=== PATIENT | female | born 1975 | race Caucasian/White ===

== ENCOUNTER 2017-09-30 09:16 | Emergency (ER) | payer OTHER ==
--- NOTE | 2017-09-30 10:23 | ER Document Report ---
HPI - HPI Patient complains to provider of: neck pain Onset: Other - chronic Onset/Duration: Persistent Pain Level: 4 Context: 42 yo female with increased stress and chronic neck pain was told by her chiropractor that she needs MR of the c spine. Appt at [facility] wasn't until later in the month and couldn't waiot until then. Tearful with her story. No radiculopathy. Pain radiates up into head causning headache. Associated Symptoms: None Exacerbated by: Movement Relieved by: Denies Similar symptoms previously: Yes Recently seen / treated by doctor: Yes - ROS ROS below otherwise negative: Yes Systems Reviewed and Negative: Yes All other systems reviewed and negative Past Medical History - General Information source: Patient - Social History Smoking Status: Never Smoker Frequency of alcohol use: None Drug Abuse: None Lives with: Family Family History: Reviewed & Not Pertinent - Medical History Medical History: Negative Surgical Hx: Negative Vertical Provider Document - CONSTITUTIONAL Agree With Documented VS: Yes Exam Limitations: No Limitations General Appearance: No Apparent Distress, Thin - INFECTION CONTROL TRAVEL OUTSIDE OF THE [place]. IN LAST 30 DAYS: No - HEENT HEENT: Normocephalic - NECK Neck: Supple - tense bilateral trapezius with winged scapula and shoulder rolled forward, exaggerated flexion t spine and chin jutted forward - RESPIRATORY Respiratory: Breath Sounds Normal, No Respiratory Distress O2 Sat by Pulse Oximetry: 94 - CARDIOVASCULAR Cardiovascular: Regular Rate, Regular Rhythm - BACK Notes: see above - MUSCULOSKELETAL/EXTREMETIES Musculoskeletal/Extremeties: MAEW, FROM, Tender - see above - NEURO Level of Consciousness: Awake, Alert, Appropriate Motor/Sensory: No Motor Deficit, No Sensory Deficit - DERM Integumentary: Warm, Dry, No Rash Course - Vital Signs Vital signs: Temp Pulse Resp BP Pulse Ox 98.1 F 97 20 110/61 94 09/30/17 09:26 09/30/17 09:26 09/30/17 09:26 09/30/17 09:26 09/30/17 09:26 Discharge - Discharge Clinical Impression: Chronic neck pain Condition: Good Disposition: HOME, SELF-CARE Instructions: Acetaminophen, Arthralgia ([facility]), Family Physicians / Practices, Myalagia (Muscle Pain) ([facility]), Steroid Medication, Ultram ([facility]) Additional Instructions: warm compress spine range of motion and proper alignment as discussed MRI cervical spine outpt order see family practice doctor for follow up Prescriptions: Promethazine HCl [Phenergan 25 mg Tablet] 25 mg PO Q4HP PRN #20 tablet PRN Reason: Prednisone [Deltasone 10 mg Tablet] 10 mg PO ASDIR PRN #15 tablet PRN Reason: Tramadol HCl [Ultram 50 mg Tablet] 50 mg PO ASDIR PRN #10 tablet PRN Reason: Forms: Follow-Up Outpatient Testing
[2017-09-30] MEDS ORDERED: ONDANSETRON 4 MG TAB.RAPDIS PO ONE (11:33)
[2017-09-30] MEDS ORDERED: PREDNISONE 20 MG TABLET PO ONE (11:33)
[2017-09-30] MEDS ORDERED: ACETAMINOPHEN 325 MG TABLET PO ONE (11:36)
[2017-09-30 12:03] VITALS: BP 119/59
== END 2017-09-30 12:03 | disposition home or self-care (01) ==
LOC: ER 09:16
DX: G89.29 Other chronic pain (principal); M54.2 Cervicalgia; R51 Headache
CPT/HCPCS: 99283; S0119; J7512

== ENCOUNTER 2018-01-10 23:52 | Emergency (ER) | payer OTHER ==
--- NOTE | 2018-01-11 01:15 | ER Document Report ---
ED Psych Disorder / Suicide - General Mode of Arrival: Ambulatory Information source: Patient TRAVEL OUTSIDE OF THE U.S. IN LAST 30 DAYS: No <REBECCA OJEDA - Last Filed: 01/11/18 03:17> <MARY CUNNINGHAM - Last Filed: 01/11/18 04:09> - General Chief Complaint: Psych Problem Stated Complaint: IVC WITH PAPERS Time Seen by Provider: 01/11/18 00:57 Notes: Patient is a 42 year old female that presents to the emergency department today with complaints of suicidal ideation according to who took out IVC paperwork on the patient. Patient states she has been off of her psychiatric medicine for quite some time. states there have been several situational events which have upset the patient. Patient denies doing anything prior to arrival to harm herself. (REBECCA OJEDA) - Related Data Allergies/Adverse Reactions: Sulfa (Sulfonamide Antibiotics) Allergy (Verified 09/30/17 10:24) tetracycline Allergy (Verified 09/30/17 10:24) Past Medical History - General Information source: Patient - Social History Smoking Status: Unknown if Ever Smoked Cigarette use (# per day): No Frequency of alcohol use: None Drug Abuse: None Lives with: Family Family History: Reviewed & Not Pertinent Patient has suicidal ideation: No Patient has homicidal ideation: No Psychiatric Medical History: Reports: Hx Attention Deficit Hyperactivity Disorder, Hx Depression Past Surgical History: Reports: Hx Hysterectomy, Hx Orthopedic Surgery <REBECCA OJEDA - Last Filed: 01/11/18 03:17> Review of Systems - Review of Systems Constitutional: No symptoms reported EENT: No symptoms reported Cardiovascular: No symptoms reported Respiratory: No symptoms reported Gastrointestinal: No symptoms reported Genitourinary: No symptoms reported Female Genitourinary: No symptoms reported Musculoskeletal: No symptoms reported Skin: No symptoms reported Hematologic/Lymphatic: No symptoms reported Neurological/Psychological: See HPI, Other - suicidal ideation -: Yes All other systems reviewed and negative <REBECCA OJEDA - Last Filed: 01/11/18 03:17> Physical Exam - Vital signs Interpretation: Normal - General General appearance: Appears well, Alert - HEENT Head: Normocephalic, Atraumatic Eyes: Normal Pupils: PERRL - Respiratory Respiratory status: No respiratory distress Chest status: Nontender Breath sounds: Normal Chest palpation: Normal - Cardiovascular Rhythm: Regular Heart sounds: Normal auscultation Murmur: No - Abdominal Inspection: Normal Distension: No distension Bowel sounds: Normal Tenderness: Nontender Organomegaly: No organomegaly - Back Back: Normal, Nontender - Extremities General upper extremity: Normal inspection, Nontender, Normal color, Normal ROM , Normal temperature General lower extremity: Normal inspection, Nontender, Normal color, Normal ROM , Normal temperature, Normal weight bearing. No: Natali's sign - Neurological Neuro grossly intact: Yes Cognition: Normal Orientation: AAOx4 Palmetto Coma Scale Eye Opening: Spontaneous Palmetto Coma Scale Verbal: Oriented Palmetto Coma Scale Motor: Obeys Commands Palmetto Coma Scale Total: 15 Speech: Normal Motor strength normal: LUE, RUE, LLE, RLE Sensory: Normal - Psychological Associated symptoms: Flat affect, Tearful - Skin Skin Temperature: Warm Skin Moisture: Dry Skin Color: Normal <MARY CUNNINGHAM - Last Filed: 01/11/18 04:09> Course - Laboratory Result Diagrams: 01/11/18 01:55 01/11/18 01:55 <REBECCA OJEDA - Last Filed: 01/11/18 03:17> - Laboratory Result Diagrams: 01/11/18 01:55 01/11/18 01:55 <MARY CUNNINGHAM - Last Filed: 01/11/18 04:09> - Re-evaluation Re-evalutation: 01/11/18 Patient is a 42-year-old female who was apparently making suicidal comments and writing on the wall at home. Patient is tearful on exam and that she would just like to go home. States that she has not been taking her medications as she is supposed to. Patient is medically stable. She has had a hysterectomy in the past. She will be held for mental health evaluation in the morning (MARY CUNNINGHAM) - Laboratory Laboratory results interpreted by id: 01/11/18 01/11/18 01:55 01:55 MCV 98 H Sodium 146.9 H Total Bilirubin < 0.1 L Total Protein 6.2 L Salicylates < 1.0 L Acetaminophen < 10 L Discharge <REBECCA OJEDA - Last Filed: 01/11/18 03:17> <MARY CUNNINGHAM - Last Filed: 04/29/18 04:09> - Discharge Clinical Impression: Suicidal ideation Condition: Stable Disposition: PSYCH HOSP/UNIT Scribe Attestation: 01/11/18 04:09 I personally performed the services described in the documentation, reviewed and edited the documentation which was dictated to the scribe in my presence, and it accurately records my words and actions. (MARY CUNNINGHAM) Scribe Documentation - Scribe Written by Scribe:: Nagi Vieira, 01/11/2018 0331 acting as scribe for :: Kwadwo <REBECCA OJEDA - Last Filed: 01/11/18 03:17>
[2018-01-11 02:14] LABS: ACETAMINOPHEN < 10 ug/mL (10-30); ALANINE AMINOTRANSFERASE 25 U/L (9-52); ALBUMIN 3.9 g/dL (3.5-5.0); ALCOHOL < 10 mg/dL (NONE DETECTED); ALKALINE PHOSPHATASE 54 U/L (38-126); ANION GAP 12 (5-19); ASPARTATE AMINO TRANSFERASE 16 U/L (14-36); BILIRUBIN,TOTAL < 0.1 mg/dL (0.2-1.3); BLOOD UREA NITROGEN 14 mg/dL (7-20); CALCIUM 9.6 mg/dL (8.4-10.2); CARBON DIOXIDE 29 mmol/L (22-30); CHLORIDE 106 mmol/L (98-107); GLUCOSE 96 mg/dL (75-110); SALICYLATE < 1.0 mg/dL (2.0-20.0); SODIUM 146.9 mmol/L (137-145); TOTAL PROTEIN 6.2 g/dL (6.3-8.2)
[2018-01-11 02:16] LABS: ABSOLUTE BASOPHILS # (AUTO) 0.1 10^3/uL (0.0-0.2); ABSOLUTE EOSINOPHILS # (AUTO) 0.3 10^3/uL (0.0-0.6); ABSOLUTE LYMPHOCYTES (AUTO) 2.4 10^3/uL (0.5-4.7); ABSOLUTE MONOCYTES (AUTO) 0.8 10^3/uL (0.1-1.4); ABSOLUTE NEUT (AUTO) 5.8 10^3/uL (1.7-8.2); BASOPHILS % (AUTO) 0.7 % (0-2); EOSINOPHILS % (AUTO) 2.7 % (0-6); HEMATOCRIT 37.8 % (36.0-47.0); HEMOGLOBIN 12.6 g/dL (12.0-15.5); LYMPHOCYTES % (AUTO) 26.1 % (13-45); MEAN CORPUSCULAR HEMOGLOBIN 32.7 pg (27.0-33.4); MEAN CORPUSCULAR HGB CONC 33.3 g/dL (32.0-36.0); MEAN CORPUSCULAR VOLUME 98 fl (80-97); MONOCYTES % (AUTO) 8.5 % (3-13); PLATELET COUNT 347 10^3/uL (150-450); RED BLOOD COUNT 3.86 10^6/uL (3.72-5.28); RED CELL DISTRIBUTION WIDTH 13.2 % (11.5-14.0); TOTAL CELLS COUNTED % (AUTO) 100 %; WHITE BLOOD COUNT 9.3 10^3/uL (4.0-10.5)
--- NOTE | 2018-01-11 08:10 | EKG REPORT ---
SEVERITY:- ABNORMAL ECG - SINUS RHYTHM PROLONGED QT INTERVAL : Confirmed by: Jacob Armenta MD 11-Jan-2018 08:09:45
[2018-01-11 09:36] LABS: AMORPHOUS SEDIMENT,URINE TRACE /HPF; APPEARANCE,URINE CLOUDY; BILIRUBIN,URINE NEGATIVE (NEGATIVE); COLOR,URINE YELLOW; GLUCOSE, URINE NEGATIVE (NEGATIVE); KETONES,URINE NEGATIVE (NEGATIVE); LEUKOCYTE ESTERASE,URINE NEGATIVE (NEGATIVE); NITRITE,URINE NEGATIVE (NEGATIVE); PROTEIN,URINE NEGATIVE (NEGATIVE); URINE SPECIFIC GRAVITY 1.012; UROBILINOGEN,URINE NEGATIVE mg/dL (<2.0)
[2018-01-11 09:49] LABS: URINE AMPHETAMINES SCREEN NEGATIVE; URINE BARBITURATES SCREEN NEGATIVE; URINE BENZODIAZEPINES SCREEN UNCONFIRMED POSITIVE; URINE COCAINE SCREEN NEGATIVE; URINE MARIJUANA (THC) SCREEN NEGATIVE; URINE METHADONE SCREEN NEGATIVE; URINE PHENCYCLIDINE SCREEN NEGATIVE
--- NOTE | 2018-01-11 11:27 | ER Document Report ---
Doctor's Note Notes: 01/11/18 11:26 42-year-old female that presents yesterday secondary to some suicidal ideations with IVC paperwork taken out by the . Patient admits to being noncompliant with medications. Patient has no acute complaints at this time. Labs and vital signs as recorded. Awaiting psychiatry/psychology evaluation. 01/11/18 12:41 They believe that the patient was attempting to stockpile medications in an attempt to kill himself. We will provide psychiatry/psychology's medication recommendations and reevaluate the patient in the morning.
[2018-01-11] MEDS ORDERED: FLUOXETINE HCL 20 MG CAPSULE PO SCH (12:45)
[2018-01-11] MEDS ORDERED: BENZTROPINE MESYLATE 1 MG TABLET PO SCH (12:45)
[2018-01-11] MEDS: OLANZAPINE 5 MG TABLET PO SCH ×2 (13:08→18:25)
[2018-01-11] MEDS ORDERED: OLANZAPINE 5 MG TABLET PO ONE (13:30)
[2018-01-11] MEDS ORDERED: BENZTROPINE MESYLATE 1 MG TABLET PO ONE (13:30)
[2018-01-11] MEDS ORDERED: FLUOXETINE HCL 20 MG CAPSULE PO ONE (13:30)
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
[2018-01-11] MEDS ORDERED: NICOTINE 21 MG/24 HR PATCH.TD24 TD ONE (14:11)
--- NOTE | 2018-01-12 09:25 | ER Document Report ---
Doctor's Note Notes: 01/12/18 09:25 As the rounding physician for our psychiatric patients, I have reviewed the chart, vitals, lab work. Patient has been examined and noted to be resting comfortably. I am awaiting mental health in put. 01/12/18 10:03
[2018-01-12 09:28] VITALS: BP 123/81
--- NOTE | 2018-01-12 11:31 | PSYCHOLOGICAL NOTE ---
<SUSANNA LANE - Last Filed: 01/12/18 11:26> Psych Note - Psych Note Psych Note: Reason for consult: suicidal ideation Eval: 0855 Final Disposition 11:00 am Patient is a 42-year-old female. Patient reports she is feeling much better because she was able to get sleep. Patient reports that she does have bipolar disorder and states at this time she feels she is just above her "lows". Patient reports in the past she has thought she was not bipolar and did not need medications. Patient reports that she knows she has bipolar disorder now and it runs in her family to include her daughter, father, and a sibling who all struggling with bipolar disorder. Patient reports her daughter is currently in long-term. Patient reports she had a lot of stress going on with her ujkzsr-sv-nsa and problems with her . Patient reports her and her was talking yesterday and she spoke with him today. Patient reports she will take her medication and talk with her about how she feels about her vsdemv-ar-gqv. Patient reports she has been trying to get her mother in law of the house for the last 4 years and states that it has been making her depressed. Patient reports she has plans to see her mom and sister. Patient reports that she will follow up with her therapist Yaz Marte, the [facility] counselor Marty Acosta, and [facility] for medication management. Patient reports she did not want to kill herself she just wanted her hifcsz-lq-kru gone. Patient reports when she was writing on the james doing stencils stating it was decoration. Collateral Information: Patient's Michael Caal phone #[phone] Patient's reports he spoke with patient today and said she sounded a lot better. Patient's reports he will be able to assist patient in following up with [facility], marriage counseling with [facility], and patient's therapist Yaz Marte. Patient's reports he saw patient yesterday , and is aware medication changes were made. Diagnosis 296.7 (F31.9) per history bipolar disorder current or most recent episode unspecified Medication recommendations made by [facility] contracted psychiatric provider Dr. Live MD includes: 1. Continue Prozac 10 mg daily 2. Continue Zyprexa 5 mg twice a day 3. Continue Cogentin 1 mg daily Impression/Plan: Patient is psychiatrically cleared for discharge. Recommendation to rescind involuntary commitment due to patient not meeting criteria [place] GS 122C. Clinician observed patient's affect has improved, she is no longer tearful, is able to cooperate with assessment. Clinician observed patient was experiencing situational and environmental stresses to include discord with a family member ( mother in law) . Patient denied SI/HI, and states she was directing her anger at her mother in law as an ultimatum to her . Clinician observed patient is demonstrating future oriented thinking and has plans to meet with her family members. Mental health coordinated with patient's Michael Caal, who agreed to safety plan in the home and take patient to her appointments. Recommendation to follow up with outpatient provider at [facility] scheduled , [facility] marriage counselor scheduled, and Mental health therapist Yaz Marte scheduled. Attending physician in agreement with plan. Consulted with Dr. Perez regarding the management and care of patient. <MADELAINE LEON - Last Filed: 01/12/18 12:09> Psych Note - Psych Note Psych Note: After performing a Medical Screening Examination, I estimate there is LOW risk for any life threatening mental health issues. At this time the patient looks extremely well and has not attempted severe self harm. I have reevaluated this patient multiple times and no significant life threatening changes are noted. The patient and I have discussed the diagnosis and risks, and we agree with discharging home with close follow-up with the understanding that symptoms and presentations can change. We also discussed returning to the Emergency Department immediately if new or worsening symptoms occur. We have discussed the symptoms which are most concerning (hallucinations, thoughts or actions of self harm or harm to others) that necessitate immediate return.
[2018-01-12] MEDS ORDERED: FLUOXETINE HCL 20 MG CAPSULE PO ONE ×2 (11:45→12:00)
[2018-01-12] MEDS ORDERED: FLUOXETINE HCL 20 MG/5 ML UDCUP PO SCH (12:00)
[2018-01-12] MEDS ORDERED: BENZTROPINE MESYLATE 1 MG TABLET PO ONE (12:00)
[2018-01-12] MEDS ORDERED: OLANZAPINE 5 MG TABLET PO ONE (12:00)
[2018-01-12] MEDS ORDERED: OLANZAPINE 5 MG TABLET PO SCH (22:00)
[2018-01-13] MEDS ORDERED: BENZTROPINE MESYLATE 1 MG TABLET PO SCH (12:00)
== END 2018-01-12 12:20 | disposition home or self-care (01) ==
LOC: ER 23:52
DX: Z04.6 Encounter for general psychiatric examination, requested by authority (principal); F31.61 Bipolar disorder, current episode mixed, mild; R45.851 Suicidal ideations; Z63.0 Problems in relationship with spouse or partner; Z63.1 Problems in relationship with in-laws; Z91.14 Patient's other noncompliance with medication regimen; Z88.2 Allergy status to sulfonamides; Z88.1 Allergy status to other antibiotic agents; Z81.8 Family history of other mental and behavioral disorders
CPT/HCPCS: 36415; 80053; 80307; 81001; 85025; 93005; 93010; 99285

== ENCOUNTER 2018-02-24 12:44 | Emergency (ER) | payer OTHER ==
--- NOTE | 2018-02-24 13:07 | ER Document Report ---
ED Psych Disorder / Suicide - General Chief Complaint: Psych Problem Stated Complaint: PSYCH EVAL Time Seen by Provider: 02/24/18 12:51 Notes: The patient is a 43-year-old female, past medical history bipolar, presents in police custody after she is having increasing suicidal thoughts. She was at Dr. Espinal's office this morning and was set up for an inpatient psychiatric bed. However, the police liaison officer brought her to the ER instead of the inpatient psychiatric facility. Patient has no complaints at this time other than feeling hungry. TRAVEL OUTSIDE OF THE [place] IN LAST 30 DAYS: No - Related Data Allergies/Adverse Reactions: Sulfa (Sulfonamide Antibiotics) Allergy (Verified 09/30/17 10:24) tetracycline Allergy (Verified 09/30/17 10:24) Past Medical History - General Information source: Patient, Law Enforcement - Social History Smoking Status: Unknown if Ever Smoked - Patient Family History: Reviewed & Not Pertinent Renal/ Medical History: Denies: Hx Peritoneal Dialysis Psychiatric Medical History: Reports: Hx Attention Deficit Hyperactivity Disorder, Hx Depression Past Surgical History: Reports: Hx Hysterectomy, Hx Orthopedic Surgery Review of Systems - Review of Systems Notes: REVIEW OF SYSTEMS: CONSTITUTIONAL: -fevers, -chills EENT: -eye pain, -difficulty swallowing, -nasal congestion CARDIOVASCULAR: -chest pain, -syncope. RESPIRATORY: -cough, -SOB GASTROINTESTINAL: -abdominal pain, -nausea, -vomiting, -diarrhea GENITOURINARY: -dysuria, -hematuria MUSCULOSKELETAL: -back pain, -neck pain SKIN: -rash or skin lesions. HEMATOLOGIC: -easy bruising or bleeding. LYMPHATIC: -swollen, enlarged glands. NEUROLOGICAL: -altered mental status or loss of consciousness, -headache, - neurologic symptoms PSYCHIATRIC: -anxiety, +depression, +SI ALL OTHER SYSTEMS REVIEWED AND NEGATIVE. Physical Exam - Notes Notes: PHYSICAL EXAMINATION: GENERAL: No acute distress. Tearful. EYES: Pupils equal round and reactive to light, extraocular movements intact, sclera anicteric, conjunctiva are normal. ENT: nares patent, oropharynx clear without exudates. Moist mucous membranes. NECK: Normal range of motion, supple without lymphadenopathy LUNGS: Breath sounds clear to auscultation bilaterally and equal. No wheezes rales or rhonchi. HEART: Regular rate and rhythm without murmurs EXTREMITIES: Normal range of motion, no pitting or edema. No cyanosis. NEUROLOGICAL: No focal neuro deficits. PSYCH: Tearful. SKIN: Warm, Dry, normal turgor, no rashes or lesions noted. Course - Re-evaluation Re-evalutation: 02/24/18 13:03 Pt without any complaints other than feeling hungry. She Lisandro has a inpatient psychiatric bed and was mistakenly brought to the ER instead of the inpatient psychiatric facility. Medical screening exam completed and no emergent medical found. Discharge - Discharge Clinical Impression: Suicidal ideation, Encounter for medical screening examination Condition: Stable Disposition: HOME, SELF-CARE Additional Instructions: You will be transferred to an inpatient psychiatric facility for further evaluation and treatment.
[2018-02-24 13:25] VITALS: BP 124/78
== END 2018-02-24 13:15 | disposition home or self-care (01) ==
LOC: ER 12:44
DX: R45.851 Suicidal ideations (principal); Z13.89 Encounter for screening for other disorder; Z88.2 Allergy status to sulfonamides
CPT/HCPCS: 99284